=== PATIENT | male | born 1960 | race African-American/Black ===

== ENCOUNTER 2018-03-20 04:03 | Inpatient (IN) | payer OTHER ==
[~2018-03-20] VITALS: Ht 190.5 cm; Wt 135.3 kg
[2018-03-20 04:30] LABS: BASOPHIL (%) 0.8 % (0-1); BASOPHIL COUNT 0.1 K/uL (0-0.1); EOSINOPHIL (%) 3.3 % (0-5); EOSINOPHIL COUNT 0.2 K/uL (0-0.3); HEMATOCRIT 42.7 % (38.0-50.0); HEMOGLOBIN 14.3 G/DL (12.5-16.6); IMMATURE GRANULOCYTE (%) 0.3 % (0.0-0.7); LYMPHOCYTE (%) 45.2 % (15-42); LYMPHOCYTE COUNT 3.3 K/uL (1.0-2.8); MCH 32.6 PG (29.0-34.0); MCHC 33.5 G/DL (30.0-36.0); MCV 97.3 FL (86-99); MONOCYTE (%) 13.4 % (3-12); NEUTROPHIL COUNT 2.7 K/uL (1.8-6.4); PLATELET COUNT 254 K/uL (156-360); RBC DIS.WIDTH-CV 11.6 % (11.8-14.6); RBC DIS.WIDTH-SD 41.6 % (39-53); RED BLOOD COUNT 4.39 M/uL (4.00-5.50); WHITE BLOOD COUNT 7.3 K/uL (4.1-10.2)
[2018-03-20 04:43] LABS: AMYLASE 40 IU/L (1-118); CHLORIDE 103 mEq/L (99-109); POTASSIUM 3.4 mEq/L (3.7-5.4); SODIUM 136 mEq/L (136-147)
[2018-03-20 04:45] LABS: GLUCOSE 207 mg/dL (70-99); PTT 27.3 SEC (25-37)
[2018-03-20 04:48] LABS: SERUM ETHYL ALCOHOL 50 mg/dL
[2018-03-20 04:49] LABS: CREATININE 1.2 mg/dL (0.6-1.3); GFR ESTIMATE (CALCULATED) > 59 mL/min/ (58.99-99999)
[2018-03-20 04:50] LABS: UREA NITROGEN (BUN) 12 mg/dL (9-23)
[2018-03-20 04:52] LABS: LIPASE 47 U/L (1.0-51.0)
[2018-03-20 04:57] LABS: TROP-I INTERPRETATION NEGATIVE; TROPONIN-I < 0.01 ng/mL (0.0-0.30)
[2018-03-20 05:53] LABS: APPEARANCE CLEAR ((CLEAR)); BILIRUBIN NEGATIVE; BLOOD NEGATIVE; COLOR YELLOW ((YELLOW)); GLUCOSE (STRIP) NEGATIVE; KETONES NEGATIVE; LEUKOCYTES NEGATIVE; NITRITE NEGATIVE; PROTEIN (STRIP) NEGATIVE; SPECIFIC GRAVITY 1.048 (1.000-1.030); UCUL ADDED? NO; UROBILINOGEN 0.2 MG/DL (0.2-1.0)
[2018-03-20 06:16] LABS: AMPHETAMINE NEGATIVE (500 ng/mL); BARBITURATES NEGATIVE (200 ng/mL); BENZODIAZEPINES NEGATIVE (150 ng/mL); BUPRENORPHINE NEGATIVE (10 ng/mL); COCAINE NEGATIVE (150 ng/mL); METHADONE NEGATIVE (200 ng/mL); METHAMPHETAMINE NEGATIVE (500 ng/mL); OPIATES (MORPHINE) NEGATIVE (100 ng/mL); OXYCODONE NEGATIVE (100 ng/mL); PHENCYCLIDINE NEGATIVE (25 ng/mL); PROPOXYPHENE NEGATIVE (300 ng/mL); THC CANNABINOIDS NEGATIVE (50 ng/mL); TRICYCLIC ANTIDEPRESSANTS NEGATIVE (300 ng/mL)
[2018-03-20 06:27] VITALS: BP 168/93
[2018-03-20 07:10] LABS: HDL CHOLESTEROL 47 MG/DL (Desirable>=40); LDL CHOLESTEROL 110 mg/dL (Desirable<100); MAGNESIUM 2.1 mg/dl (1.3-2.7); NON-HDL CHOLESTEROL 172 mg/dL (Desirable<160); TOTAL CHOLESTEROL 219 mg/dL (Desirable<200); TRIGLYCERIDES 309 MG/DL (Normal: <150)
[2018-03-20 07:38] VITALS: BP 150/100
[2018-03-20 11:05] LABS: TROP-I INTERPRETATION NEGATIVE; TROPONIN-I < 0.01 ng/mL (0.0-0.30)
[2018-03-20 11:58] VITALS: BP 144/90
[2018-03-20 12:47] LABS: HEMOGLOBIN A1c (GLYCOHEMOGLOB) 5.4 % (Below 5.7)
[2018-03-20 15:58] VITALS: BP 145/94
[2018-03-20 18:19] LABS: TROP-I INTERPRETATION NEGATIVE; TROPONIN-I < 0.01 ng/mL (0.0-0.30)
[2018-03-20 19:33] VITALS: BP 157/90
[2018-03-20 23:40] VITALS: BP 117/63
[2018-03-21 03:45] VITALS: BP 127/76
[2018-03-21 05:50] LABS: HEMATOCRIT 41.1 % (38.0-50.0); HEMOGLOBIN 13.3 G/DL (12.5-16.6); MCH 32.4 PG (29.0-34.0); MCHC 32.4 G/DL (30.0-36.0); PLATELET COUNT 231 K/uL (156-360); RBC DIS.WIDTH-CV 11.8 % (11.8-14.6); RBC DIS.WIDTH-SD 43.4 % (39-53); RED BLOOD COUNT 4.11 M/uL (4.00-5.50)
[2018-03-21 06:12] LABS: ALBUMIN 3.7 G/DL (3.2-4.8); ALKALINE PHOSPHATASE 44 IU/L (3-129); ALT (GPT) 17 IU/L (3-49); AST (GOT) 16 IU/L (2-34); CHLORIDE 103 MEQ/L (99-109); GFR ESTIMATE (CALCULATED) > 59 mL/min/ (58.99-99999); GLUCOSE 123 mg/dL (70-99); SODIUM 138 MEQ/L (136-147); TOTAL BILIRUBIN 1.2 MG/DL (0.0-1.0); TOTAL PROTEIN 6.7 G/DL (6.4-8.3); UREA NITROGEN (BUN) 10 mg/dL (9-23)
[2018-03-21 06:29] LABS: POTASSIUM 4.4 MEQ/L (3.7-5.4)
[2018-03-21 07:25] VITALS: BP 138/89
[2018-03-21] MEDS ORDERED: CLOPIDOGREL75 MG PO (10:33)
[2018-03-21] MEDS ORDERED: AMLODIPINE BESYL5 MG PO (10:33)
[2018-03-21] MEDS ORDERED: ATORVASTATIN CA40 MG PO (10:33)
[2018-03-21] MEDS ORDERED: THIAMINE HCL100 MG PO (10:33)
[2018-03-21] MEDS ORDERED: CENTRUM SILVER1 EAC5 PO (10:33)
[2018-03-21] MEDS ORDERED: FOLIC ACID1 MG PO (10:33)
== END 2018-03-21 12:40 | disposition home or self-care (01) | DRG 66 ==
LOC: EME 04:03 → ENRESERVDT 05:07 → ENRESERVTM 05:07 → 5SOUTH 05:07 → EDOF 05:07 → ENRESERV 05:07 → 5SOUTH 06:09 → ENPENDDIS 03-21 12:18 → 5SOUTH 03-21 12:40
PROVIDERS: Emergency Medicine; Internal Medicine
DX: I63.9 Cerebral infarction, unspecified (principal); I65.22 Occlusion and stenosis of left carotid artery; R47.1 Dysarthria and anarthria; R47.01 Aphasia; G83.21 Monoplegia of upper limb affecting right dominant side; R29.705 NIHSS score 5; E87.6 Hypokalemia; F10.10 Alcohol abuse, uncomplicated; E66.01 Morbid (severe) obesity due to excess calories; Z68.37 Body mass index [BMI] 37.0-37.9, adult; I10 Essential (primary) hypertension; R35.8 Other polyuria; R73.9 Hyperglycemia, unspecified; F40.240 Claustrophobia
CPT/HCPCS: 70450; 70496; 70498; 80047; 80048; 80048 91; 80053; 80061; 81003; 82150; 82948; 83036; 83605; 83690; 83735; 84484; 85025; 85027; 85610; 85730; 86850; 86900; 86901; 92523 GN; 92610 GN; 93005; 93306; G0480; J1644; J1815; J2997; J3411; J7030